=== PATIENT | female | born 1960 | race Caucasian/White ===

== ENCOUNTER 2016-11-10 16:43 | Inpatient (IN) | payer BC, OTHER ==
[~2016-11-10] VITALS: Ht 172.7 cm; Wt 97.4 kg
--- NOTE | ~2016-11-10 | EKG ---
[address] [address] ELECTROCARDIOGRAM REPORT Name: MORELIA HOLLAND Room #: 409-P ADM IN M.R.#: [id number] Admission: 11/10/16 Attend Phys: Dmitriy Torres MD Discharge: Date of : 58 Report #: [id number] THIS REPORT FOR: //name// [facility] ED Test Date: 2016-11-10 Test Time: 18:11:27 Pat Name: MORELIA HOLLAND Department: Room: 409 Gender: F Vp Purchasing: brandan : 1960 Requested By: Martín Orlando Order Number: [id number] MD: Donovan High Measurements Intervals [place] Rate: 97 P: 52 VT: 153 QRS: -8 QRSD: 89 T: 35 QT: 325 QTc: 413 Interpretive Statements Sinus rhythm No previous ECG available for comparison Electronically Signed On 11-11-2016 8:20:06 [employer] by Donovan High [email or web address] <ELECTRONICALLY SIGNED> By: Donovan High MD 11/11/16 0820 [id number] MD MIREILLE Cobb
[2016-11-10 16:43] VITALS: BP 174/82
[~2016-11-10 16:43] MED LIST: AMOXICILLIN875 MG PO; ASPIR 8181 M1 PO; AUGMENTIN 875875 MG PO; AZITHROMYCIN 2250 MG PO; COLACE100 MG PO; CORTEF; CORTEF5 MG PO; DILTIAZEM ER120 M1 PO; FLEXERIL PO; FLORINEF ACETA0.1 MG PO; FOSAMAX 70 MG T70 MG PO; GLUCOPHAGE500 MG PO; KEFLEX500 MG PO; LEVOTHYROXIN0.125 M1 PO; LEVOXYL125 MCG PO; MEDROLDOSEPACK PO; NEURONTIN 300300 M1 PO; PERCOCET 5-3251 EACH PO; TYLENOL325 MG PO; ULTRACET; ULTRACET TABLE1 EACH PO; ULTRACET TABLET1 TAB PO; VALTREX 500 MG500 M1 PO; ZOCOR20 MG PO
[2016-11-10 17:30] LABS: ABG SAMPLE TYPE ARTERIAL; BE(vivo) 6.4 mmol/L (-2 to +3); HCO3 32.6 mmol/L (22.0-26.0); O2(CT) 13.7 mL/dL (15.0-23.0); O2Hb 89.1 % (92.0-98.0); PCO2 55.2 mmHg (35.0-45.0); PO2 63.8 mmHg (80.0-100.0); pH 7.389 (7.360-7.450); sO2 91.7 % (92.0-98.0); tCO2 34.3 mmol/L (24.0-30.0)
[2016-11-10 17:30] LABS: ABSOLUTE NEUTROPHILS 7.4 thou/uL (1.4-8.2); BASOPHILS 0.4 % (0.0-2.0); EOSINOPHILS 2.2 % (0.0-3.0); HEMATOCRIT 32.3 % (37.0-47.0); HEMOGLOBIN 10.3 gm/dL (12.0-15.0); LYMPHOCYTES 14.8 % (24.0-44.0); MCH 23.7 pg (26.0-34.0); MCHC 31.9 % (28.0-37.0); MCV 74.4 fL (80.0-100.0); PLATELET COUNT 283 thou/uL (150-400); POLYS 74.6 % (36.0-66.0); RBC 4.34 mil/uL (4.20-5.00); RDW 18.8 % (10.5-14.5); WBC 9.9 thou/uL (4.0-11.0)
[2016-11-10 17:31] LABS: STICK SITE R.RADIAL
[2016-11-10 17:31] LABS: MANUAL DIFF NO
[2016-11-10 17:38] LABS: ANION GAP 4 mmol/L (7-16); BUN 23 mg/dL (7-18); CHLORIDE 99 mmol/L (98-107); CO2 35 mmol/L (21-32); CREATININE 0.9 mg/dL (0.6-1.3); GLUCOSE 156 mg/dL (70-99); POTASSIUM 3.8 mmol/L (3.5-5.1); SODIUM 138 mmol/L (136-145)
[2016-11-10 17:39] LABS: CALCIUM 13.1 mg/dL (8.5-10.1)
[2016-11-10 17:46] LABS: ALKALINE PHOSPHATASE 223 U/L (46-116); SGOT 61 U/L (15-37); TOTAL BILIRUBIN 0.5 mg/dL (<0.1-1.0)
[2016-11-10 17:47] LABS: ALBUMIN 3.4 g/dL (3.4-5.0); SGPT 125 U/L (30-65); TOTAL PROTEIN 7.3 g/dL (6.4-8.2); TROPONIN-I < 0.04 ng/mL (<0.04-0.07)
[2016-11-10 19:02] LABS: URINE BILIRUBIN NEGATIVE (Negative); URINE BLOOD NEGATIVE (Negative); URINE COLOR YELLOW; URINE GLUCOSE-RANDOM* NEGATIVE (Negative); URINE KETONES NEGATIVE (Negative); URINE LEUKOCYTES-REFLEX TRACE (Negative); URINE PROTEIN (DIPSTICK) NEGATIVE (Negative); URINE SPECIFIC GRAVITY 1.015 (1.003-1.035); URINE UROBILINOGEN 0.2 E.U./dl (0.2-1.0)
[2016-11-10 22:08] VITALS: BP 151/78
[2016-11-10 22:30] VITALS: BP 159/82
[2016-11-11 04:00] VITALS: BP 156/90
[2016-11-11 08:00] VITALS: BP 162/80
[2016-11-11 10:08] VITALS: BP 169/90
[2016-11-11 18:50] VITALS: BP 166/81
[2016-11-12 04:15] VITALS: BP 160/79
[2016-11-12 08:00] VITALS: BP 145/83
[2016-11-12] MEDS ORDERED: OXYCONTIN10 M1 PO (14:43)
[2016-11-12] MEDS ORDERED: OXYCODONE HCL 55 MG PO (14:43)
[2016-11-12] MEDS ORDERED: COMMODE MISCELL (14:45)
[2016-11-12] MEDS ORDERED: OXYGEN MISCELL (14:45)
[2016-11-12 16:00] VITALS: BP 148/67
[2016-11-12 17:01] VITALS: BP 145/83
== END 2016-11-12 20:40 | disposition home health service (06) | DRG 597 ==
LOC: ER 16:43 → EROBS 21:29 → 4N 21:29
PROVIDERS: Physician Assistant
DX: C50.911 Malignant neoplasm of unspecified site of right female breast (principal); J96.01 Acute respiratory failure with hypoxia; J96.21 Acute and chronic respiratory failure with hypoxia; C78.00 Secondary malignant neoplasm of unspecified lung; C79.51 Secondary malignant neoplasm of bone; E27.1 Primary adrenocortical insufficiency; M84.48XA Pathological fracture, other site, initial encounter for fracture; E83.52 Hypercalcemia; G47.33 Obstructive sleep apnea (adult) (pediatric); D50.9 Iron deficiency anemia, unspecified; E03.9 Hypothyroidism, unspecified; Z91.040 Latex allergy status; Z79.52 Long term (current) use of systemic steroids; Z79.899 Other long term (current) drug therapy; Z99.81 Dependence on supplemental oxygen; Z82.3 Family history of stroke; Z28.21 Immunization not carried out because of patient refusal
CPT/HCPCS: 10091; 10790

== ENCOUNTER 2017-02-08 14:56 | Inpatient (IN) | payer BC, OTHER ==
[~2017-02-08] VITALS: Ht 172.7 cm; Wt 102.1 kg
[2017-02-08] VITALS (21 sets, daily range): BP systolic 127–186; BP diastolic 55–83
--- NOTE | ~2017-02-08 | HC ---
[facility] [place] [address] CONSULTATION Name: AMALIAMORELIA A Room #: 453-P [facility] IN M.R.#: [id number] Admission: 02/08/17 Attend Phys: Prema Naranjo Discharge: Date of : 58 Report #: [id number] THIS REPORT FOR: //name// CC: Bridger Naranjo REASON FOR CONSULTATION: I was asked to evaluate concerning bilateral pulmonary infiltrates. HISTORY OF PRESENT ILLNESS: The patient is a 56-year-old with widely metastatic breast cancer who presents with hypercalcemia, fever and progressive decline in mental status. She had been on hospice care previously and then came off for a time. Unclear exactly what her current chemotherapy program or plan of care is. Because of her fever that occurred up to 103 degrees yesterday, she was hospitalized. The patient was unable to give a very good history. She is lethargic. She was in significant amount of pain fairly diffusely. ALLERGIES: LATEX. MEDICATIONS: As noted on her MAR having been started on vancomycin, cefepime, and Levaquin. Other medications as noted on her MAR including Medrol Dosepak recently and currently hydrocortisone. PAST MEDICAL HISTORY: Obstructive sleep apnea, back pain, metastatic right breast cancer, adrenal failure, on hydrocortisone; and benign thyroid tumor. FAMILY HISTORY: Noncontributory. SOCIAL HISTORY: Past smoker, no significant alcohol intake. She resides with her significant other. REVIEW OF SYSTEMS: No nausea, vomiting, or diarrhea. Now has indwelling Herrmann catheter. Left upper extremity PICC. PHYSICAL EXAMINATION: VITAL SIGNS: Maximum temperature was 100.4 degrees, currently afebrile, tachycardic. Blood pressure is stable. GENERAL: She was lethargic, when woken she complained of diffuse pain. No cough or sputum production. She is on 5 liters of oxygen. CVP was 18-20. She had left upper extremity PICC. SKIN: Otherwise, unremarkable. Lymphadenopathy noted in her right supraclavicular region, neck, axilla. MOUTH: Unremarkable. NECK: Supple. LUNGS: Few crackles heard throughout posterior chest. No consolidation. HEART: Tachycardic and regular. ABDOMEN: Diffuse upper abdominal tenderness. No definite mass. [facility] [address] [place] [address] CONSULTATION Name: AMALIAMORELIA A Room #: 453-[facility].#: [id number] Admission: 02/08/17 Attend Phys: Prema Naranjo Discharge: Date of : 58 Report #: [id number] EXTREMITIES: Unremarkable. LABORATORY STUDIES: Sodium 140, potassium 3.1, bicarbonate 29, creatinine 1, and bill phos 316. Liver function tests otherwise normal. Calcium was 12.9. Hemoglobin 8.4, platelet count 321,000, white count 13.5, 56% segs, 5% bands, and 34% lymphs. Urinalysis, 6-15 wbc's, 1-9 bacteria. Blood and urine culture pending. On 5 liters, her pO2 was 97, pCO2 47, and pH 7.45. CT scan of the head showed metastatic bone disease. CT scan of the chest showed cardiomegaly, right breast mass with multiple metastatic disease and bilateral infiltrates. IMPRESSION: A 56-year-old with widely metastatic breast cancer. She has bilateral pulmonary infiltrates, most likely related to tumor spread. excluded secondary to bacterial infection. Recommend continuing antibiotic coverage pending plan for further palliative care. <ELECTRONICALLY SIGNED> By: Luis Peters MD 02/10/17 0838 0821 1136 Luis Peters MD /nt
--- NOTE | ~2017-02-08 | EKG ---
[place] [address] [employer] [place] [address] ELECTROCARDIOGRAM REPORT Name: MORELIA HOLLAND Room #: 244-P ADM IN M.R.#: [id number] Admission: 02/08/17 Attend Phys: Prema Naranjo Discharge: Date of : 58 Report #: [id number] THIS REPORT FOR: //name// [facility] ED Test Date: 2017-02-08 Test Time: 15:33:49 Pat Name: MORELIA HOLLAND Department: Room: [facility] Gender: F Inside Tester: PRACHI : 1960 Requested By: Tim Oropeza Order Number: [id number] MD: Morgan Barkley Measurements Intervals [place] Rate: 132 P: 60 MI: 143 QRS: 2 QRSD: 84 T: 176 QT: 241 QTc: 357 Interpretive Statements Sinus tachycardia LVH with secondary repolarization abnormality Compared to ECG 11/10/2016 18:11:27 nonspecific change in the ST and T wave segments Electronically Signed On 02-09-2017 8:31:28 CDT by Morgan Barkley [email or web address] <ELECTRONICALLY SIGNED> By: Morgan Barkley MD, [facility] 02/09/17 0831 1533 1533 Morgan Barkley MD, [facility] /EPI
[~2017-02-08 14:56] MED LIST changes: +COMMODE MISCELL; +OXYCODONE HCL 55 MG PO; +OXYCONTIN10 M1 PO; +OXYGEN MISCELL
[2017-02-08 15:19] LABS: URINE BILIRUBIN NEGATIVE (Negative); URINE BLOOD NEGATIVE (Negative); URINE COLOR YELLOW; URINE GLUCOSE-RANDOM* NEGATIVE (Negative); URINE KETONES NEGATIVE (Negative); URINE LEUKOCYTES-REFLEX 1+ (Negative); URINE PROTEIN (DIPSTICK) TRACE (Negative)
[2017-02-08 15:32] LABS: CASTS None Seen /LPF (None Seen); SQUAMOUS >10 Many /LPF (0-3)
[2017-02-08 15:33] LABS: CRYSTALS None Seen /LPF (None Seen); RENAL EPITHELIAL CELLS 0-3 Few /LPF (None Seen); URINE RBC 0-2 Rare /HPF (0-2); URINE WBC-REFLEX 6-15 Few /HPF (0-5)
[2017-02-08 15:54] LABS: HEMATOCRIT 28.1 % (37.0-47.0); HEMOGLOBIN 9.2 gm/dL (12.0-15.0); MCH 27.2 pg (26.0-34.0); MCHC 32.8 g/dL (28.0-37.0); PLATELET COUNT 335 thou/uL (150-400); RBC 3.38 mil/uL (4.20-5.00); RDW 20.4 % (10.5-14.5); WBC 11.6 thou/uL (4.0-11.0)
[2017-02-08] MEDS ORDERED: DILAUDID 2 MG TA2 MG PO ×2 (15:55→16:12)
[2017-02-08] MEDS ORDERED: MS CONTIN15 MG PO (15:55)
[2017-02-08 16:10] LABS: POTASSIUM 3.6 mmol/L (3.5-5.1)
[2017-02-08] MEDS ORDERED: CORTEF5 MG PO (16:11)
[2017-02-08 16:13] LABS: ALBUMIN 3.3 g/dL (3.4-5.0); CREATININE 1.3 mg/dL (0.6-1.0); MAGNESIUM 2.2 mg/dL (1.8-2.4); TOTAL BILIRUBIN 0.7 mg/dL (<0.1-1.0); TOTAL PROTEIN 6.8 g/dL (6.4-8.2); TROPONIN-I 0.05 ng/mL (<0.04-0.07)
[2017-02-08 16:14] LABS: CALCIUM 15.2 mg/dL (8.5-10.1)
[2017-02-08] MEDS ORDERED: [UNRECOGNIZED DRUG - CODE] PO (16:14)
[2017-02-08 16:29] LABS: MANUAL DIFF YES
[2017-02-08 16:52] LABS: ABSOLUTE NEUTROPHILS 7.1 thou/uL (1.4-8.2); ANISOCYTOSIS SLIGHT; METAMYELOCYTES 1 %; POIKILOCYTOSIS SLIGHT; TOTAL CELL COUNT 100
[2017-02-08 16:53] LABS: OTHER MORPHOLOGY STOMATOCYTES
[2017-02-08 18:35] LABS: AMYLASE 34 U/L (25-115)
[2017-02-09] VITALS (42 sets, daily range): BP systolic 98–178; BP diastolic 46–90
[2017-02-09 01:04] LABS: ABG SAMPLE TYPE ARTERIAL; HCO3 32.8 mmol/L (22.0-26.0); LACTATE 1.47 mmol/L (0.5-2.0); O2Hb 95.8 % (92.0-98.0); PCO2 47.9 mmHg (35.0-45.0); PO2 97.1 mmHg (80.0-100.0); pH 7.454 (7.360-7.450); sO2 97.6 % (92.0-98.0); tCO2 34.3 mmol/L (24.0-30.0)
[2017-02-09 01:05] LABS: STICK SITE R.RADIAL
[2017-02-09 04:51] LABS: HEMATOCRIT 25.7 % (37.0-47.0); HEMOGLOBIN 8.4 gm/dL (12.0-15.0); MCH 27.7 pg (26.0-34.0); MCHC 32.9 g/dL (28.0-37.0); MCV 84.2 fL (80.0-100.0); RBC 3.05 mil/uL (4.20-5.00); RDW 20.4 % (10.5-14.5); WBC 13.5 thou/uL (4.0-11.0)
[2017-02-09 05:10] LABS: POTASSIUM 3.1 mmol/L (3.5-5.1)
[2017-02-09 05:14] LABS: CALCIUM 12.9 mg/dL (8.5-10.1)
[2017-02-10 07:08] LABS: HEMATOCRIT 24.4 % (37.0-47.0); HEMOGLOBIN 8.1 gm/dL (12.0-15.0); MCV 84.7 fL (80.0-100.0); PLATELET COUNT 281 thou/uL (150-400); RBC 2.88 mil/uL (4.20-5.00); RDW 20.6 % (10.5-14.5); WBC 14.5 thou/uL (4.0-11.0)
[2017-02-10 07:14] LABS: MANUAL DIFF YES
[2017-02-10 07:48] LABS: ALBUMIN 3.1 g/dL (3.4-5.0); CREATININE 0.8 mg/dL (0.6-1.0); POTASSIUM 3.5 mmol/L (3.5-5.1)
[2017-02-10 07:58] LABS: ABSOLUTE NEUTROPHILS 9.6 thou/uL (1.4-8.2); METAMYELOCYTES 4 %; TOTAL CELL COUNT 100
[2017-02-10 07:59] LABS: ANISOCYTOSIS 1+; CALCIUM 12.6 mg/dL (8.5-10.1); POLYCHROMASIA OCCASIONAL
[2017-02-10 08:00] VITALS: BP 167/75
[2017-02-10 12:00] VITALS: BP 158/69
[2017-02-10 16:00] VITALS: BP 177/69
[2017-02-10 20:07] VITALS: BP 175/66
[2017-02-11] VITALS (7 sets, daily range): BP systolic 142–179; BP diastolic 66–88
[2017-02-12 04:23] VITALS: BP 138/62
[2017-02-12 08:13] VITALS: BP 142/60
[2017-02-12 12:00] VITALS: BP 129/57
[2017-02-12 16:00] VITALS: BP 154/52
[2017-02-12 20:00] VITALS: BP 115/41
== END 2017-02-13 00:21 | disposition hospice, inpatient (51) | DRG 871 ==
LOC: ER 14:56 → EROBS 16:52 → ICU 16:52 → 4W 02-09 22:47
PROVIDERS: Emergency Medicine; Hospitalist; Nurse Practitioner Acute Care
PROC: 05HA33Z Insertion of Infusion Device into Left Brachial Vein, Percutaneous Approach (ICD-10-PCS; principal; 2017-02-08)
PROC: B54NZZA Ultrasonography of Left Upper Extremity Veins, Guidance (ICD-10-PCS; 2017-02-08)
DX: A41.9 Sepsis, unspecified organism (principal); J69.0 Pneumonitis due to inhalation of food and vomit; G93.41 Metabolic encephalopathy; A85 Other viral encephalitis, not elsewhere classified; N17.9 Acute kidney failure, unspecified; E27.1 Primary adrenocortical insufficiency; C79.81 Secondary malignant neoplasm of breast; R65.20 Severe sepsis without septic shock; E83.52 Hypercalcemia; Z66 Do not resuscitate; C80.1 Malignant (primary) neoplasm, unspecified; E86.0 Dehydration; G89.29 Other chronic pain; D64.9 Anemia, unspecified; Z85.3 Personal history of malignant neoplasm of breast; Z79.899 Other long term (current) drug therapy; Z88.4 Allergy status to anesthetic agent; Z91.040 Latex allergy status; Z82.3 Family history of stroke; Z87.891 Personal history of nicotine dependence
CPT/HCPCS: 10047; 10078; 27000